=== PATIENT | female | born 1965 | race Two or more races ===

== ENCOUNTER 2021-10-21 14:29 | Emergency (ER) | payer MEDICAID ==
[~2021-10-21] VITALS: Ht 162.6 cm; Wt 61.0 kg
[2021-10-21] MEDS: dextrose 50%-water 50ml dispensing syringe IV ONE (14:45)
[2021-10-21 14:53] LABS: BASOPHILS # (AUTO) 0.1 X10'3 (0-0.2); BASOPHILS % (AUTO) 1.1 % (0-1); EOSINOPHILS # (AUTO) 0.1 X10'3 (0-0.9); EOSINOPHILS % (AUTO) 1.5 % (0-6); HEMATOCRIT 33.8 % (35.0-45.0); HEMOGLOBIN 11.4 g/dl (12.0-16.0); LYMPHOCYTES # (AUTO) 1.9 X10'3 (1.1-4.8); LYMPHOCYTES % (AUTO) 28.1 % (21-51); MEAN CORPUSCULAR HGB CONC 33.8 g/dL (33.0-36.5); MEAN CORPUSCULAR VOLUME 94.7 FL (78-98); MEAN PLATELET VOLUME 7.4 FL (7.4-10.4); MONOCYTES # (AUTO) 0.7 X10'3 (0-0.9); MONOCYTES % (AUTO) 10.5 % (2-12); NEUTROPHILS # (AUTO) 3.9 X10'3 (1.8-7.7); NEUTROPHILS % (AUTO) 58.8 % (42-75); PLATELET COUNT 357 X10'3 (140-440); RED BLOOD COUNT 3.57 X10'6 (4.20-5.60); RED CELL DISTRIBUTION WIDTH 13.1 % (11.5-14.5); WHITE BLOOD COUNT 6.6 X10'3 (4.5-11.0)
[2021-10-21 15:09] LABS: ALANINE AMINOTRANSFERASE 75 U/L (12-78); ALBUMIN 3.3 G/DL (3.4-5.0); ALBUMIN/GLOBULIN RATIO 0.8 (1.1-1.5); ALKALINE PHOSPHATASE 258 IU/L (46-116); ANION GAP 5 (8-16); ASPARTATE AMINO TRANSFERASE 51 U/L (10-37); BILIRUBIN,TOTAL 0.2 MG/DL (0.1-1.0); BLOOD UREA NITROGEN 26 MG/DL (7-18); CALCIUM 9.7 MG/DL (8.5-10.1); CHLORIDE 100 MMOL/L (99-107); CREATININE 0.84 MG/DL (0.40-0.90); GLUCOSE 67 MG/DL (70-104); POTASSIUM 3.4 MMOL/L (3.5-5.1); SODIUM 136 MMOL/L (135-145); TOTAL CARBON DIOXIDE 30.9 MMOL/L (24-32); TOTAL PROTEIN 7.6 G/DL (6.4-8.2); eGFR 71 ML/MIN
[2021-10-21 15:19] LABS: MAGNESIUM 2.1 MG/DL (1.5-2.4)
[2021-10-21 15:25] LABS: CLARITY,URINE SLIGHTLY CLOUDY (Clear); COLOR,URINE YELLOW (Yellow); GLUCOSE, URINE 250 mg/dl (Neg); KETONES,URINE NEGATIVE (Neg); LEUKOCYTE ESTERASE ,URINE NEGATIVE (Neg); NITRITES, URINE NEGATIVE (Neg); OCCULT BLOOD,URINE NEGATIVE (Neg); PROTEIN,URINE 30 mg/dl (Neg); UROBILINOGEN,URINE 0.2 E.U/dL (0.2-1.0)
--- NOTE | 2021-10-21 15:30 | NUR ---
Given a turkey sandwich,118ml apple juice and 236ml of whole milk.
--- NOTE | 2021-10-21 15:38 | NUR ---
temporal temp 96.7, placed pt on a bear hugger.
[2021-10-21 15:49] LABS: UA COLLECTION TYPE CLN CATCH MIDSTREAM
[2021-10-21 15:50] LABS: SQUAMOUS EPITHELIAL CELL,UR MANY /LPF (FEW)
[2021-10-21 15:51] LABS: MUCUS STRANDS FEW /LPF (Neg)
[2021-10-21 15:53] LABS: RBC,URINE 0-2 /HPF (0-2)
[2021-10-21 15:54] LABS: TRANSITIONAL EPI CELLS,URINE FEW /HPF
[2021-10-21 16:00] LABS: BACTERIA,URINE 1+ /HPF (Neg)
[2021-10-21 16:01] LABS: WBC,URINE 0-4 /HPF (0-4)
[2021-10-21 16:36] VITALS: BP 129/81
== END 2021-10-21 17:53 | disposition home or self-care (01) ==
LOC: ER 14:30
DX: R55 Syncope and collapse (principal); E11.649 Type 2 diabetes mellitus with hypoglycemia without coma; E03.9 Hypothyroidism, unspecified
CPT/HCPCS: 36415; 71045; 80053; 81001; 82948; 83735; 83880; 84439; 84443; 84484; 85025; 93005; 96374; 99285; J3490; 96365

== ENCOUNTER 2022-09-09 08:10 | Inpatient (IN) | payer MEDICAID ==
[~2022-09-09] VITALS: Ht 154.9 cm; Wt 68.0 kg
[2022-09-09] MEDS ORDERED: ondansetron/PF 4mg/2ml inj IV ONE (08:40)
[2022-09-09] MEDS ORDERED: normal saline 1000ML IV soln IV ONE (08:40)
[2022-09-09 09:07] LABS: BASOPHILS # (AUTO) 0.1 X10'3 (0-0.2); BASOPHILS % (AUTO) 0.3 % (0-1); EOSINOPHILS % (AUTO) 0.1 % (0-6); HEMATOCRIT 39.5 % (35.0-45.0); HEMOGLOBIN 13.3 g/dl (12.0-16.0); LYMPHOCYTES # (AUTO) 2.3 X10'3 (1.1-4.8); LYMPHOCYTES % (AUTO) 12.8 % (21-51); MEAN CORPUSCULAR HEMOGLOBIN 31.3 PG (27.0-31.0); MEAN CORPUSCULAR HGB CONC 33.7 g/dL (33.0-36.5); MEAN CORPUSCULAR VOLUME 92.6 FL (78-98); MEAN PLATELET VOLUME 8.1 FL (7.4-10.4); MONOCYTES # (AUTO) 1.4 X10'3 (0-0.9); MONOCYTES % (AUTO) 7.7 % (2-12); NEUTROPHILS # (AUTO) 14.5 X10'3 (1.8-7.7); NEUTROPHILS % (AUTO) 79.1 % (42-75); PLATELET COUNT 327 X10'3 (140-440); RED BLOOD COUNT 4.27 X10'6 (4.20-5.60); RED CELL DISTRIBUTION WIDTH 12.5 % (11.5-14.5); WHITE BLOOD COUNT 18.3 X10'3 (4.5-11.0)
[2022-09-09 09:08] LABS: ABG BASE EXCESS -10.1 mmol/L (-2.0-2.0); ABG HCO3 14.3 mmol/L (22.0-26.0); ABG OXYGEN SATURATION 96.8 % (94-97); ABG PCO2 (T) 27.9 mmHg (32.0-45.0); ABG PO2 (T) 93.5 mmHg (75.0-100.0); ALLEN'S TEST POSITIVE; FCOHb 0.7 % (0.0-3.9); FMetHb 0.3 % (0.0-1.5); FO2Hb 95.8 % (94-97); PATIENT TEMPERATURE 37.1; TOTAL HEMOGLOBIN 14.1 G/dl (12.0-16.0)
[2022-09-09 09:21] LABS: ANION GAP 17 (8-16); BILIRUBIN,TOTAL 0.5 MG/DL (0.1-1.0); BLOOD UREA NITROGEN 47 MG/DL (7-18); BUN/CREATININE RATIO 22.7 (6.6-38.0); CHLORIDE 99 MMOL/L (99-107); CREATININE 2.07 MG/DL (0.40-0.90); GLUCOSE 135 MG/DL (70-104); MAGNESIUM 2.2 MG/DL (1.5-2.4); POTASSIUM 4.4 MMOL/L (3.5-5.1); SODIUM 135 MMOL/L (135-145); TOTAL CARBON DIOXIDE 19.3 MMOL/L (24-32); TOTAL PROTEIN 7.5 G/DL (6.4-8.2); eGFR 25 ML/MIN
[2022-09-09 09:22] LABS: ALANINE AMINOTRANSFERASE 45 U/L (12-78); ALBUMIN 3.4 G/DL (3.4-5.0); ALBUMIN/GLOBULIN RATIO 0.8 (1.1-1.5); ALKALINE PHOSPHATASE 200 IU/L (46-116); ASPARTATE AMINO TRANSFERASE 23 U/L (10-37)
[2022-09-09] MEDS ORDERED: CefTRIAXone 2gm/D5W 50ml BAG 50 ML IV ONE (10:20)
[2022-09-09 10:45] LABS: CLARITY,URINE CLEAR (Clear); COLOR,URINE YELLOW (Yellow); GLUCOSE, URINE >=1000 mg/dl (Neg); KETONES,URINE >=80 mg/dl (Neg); LEUKOCYTE ESTERASE ,URINE NEGATIVE (Neg); NITRITES, URINE NEGATIVE (Neg); OCCULT BLOOD,URINE TRACE-INTACT (Neg); PH,URINE 5.5 (4.8-8.0); PROTEIN,URINE 30 mg/dl (Neg); UROBILINOGEN,URINE 0.2 E.U/dL (0.2-1.0)
[2022-09-09 10:47] LABS: UA COLLECTION TYPE STRAIGHT CATH
[2022-09-09 10:53] LABS: BACTERIA,URINE NONE SEEN /HPF (Neg); MUCUS STRANDS NONE SEEN /LPF (Neg); RBC,URINE NONE SEEN /HPF (0-2); SQUAMOUS EPITHELIAL CELL,UR FEW /LPF (FEW); WBC,URINE 0-4 /HPF (0-4)
[2022-09-09] MEDS ORDERED: ondansetron/PF 4mg/2ml inj IV PRN (10:55)
[2022-09-09] MEDS ORDERED: dextrose 50%-water 50ml dispensing syringe IV PRN ×2 (10:55)
[2022-09-09] MEDS ORDERED: glucagon, human recombinant 1mg kit SUBCUT PRN (10:55)
[2022-09-09] MEDS ORDERED: DEXTROSE 15 GM of carb/4 tabs (each vial/BOTTLE has 4 tablets) PO PRN ×2 (10:55)
[2022-09-09] MEDS ORDERED: acetaminophen 325mg tablet PO PRN (10:55)
[2022-09-09] MEDS ORDERED: potassium Cl 40MEQ/1/2NS 520ml 520 ML IV PRN (10:55)
[2022-09-09] MEDS ORDERED: magnesium hydroxide 30ml (MOM) UD suspension PO PRN (10:55)
[2022-09-09] MEDS ORDERED: MESSAGE TO PHARMACY PO ONE (10:55)
[2022-09-09] MEDS ORDERED: magnesium 4gm in 100ml NS 100 ML IV PRN (10:55)
[2022-09-09] MEDS ORDERED: magnesium Cl slow-release 64mg tablet PO PRN (10:55)
[2022-09-09] MEDS ORDERED: potassium Cl 20 mEq SR tablet PO PRN ×2 (10:55)
[2022-09-09 11:33] LABS: HEMOGLOBIN A1C 10.4 % (4.5-6.2)
[2022-09-09] MEDS ORDERED: INSU100V9 SQ (13:44)
[2022-09-09] MEDS: insulin Lispro (HumaLOG) vial - multi-dose SQ SCH (17:48)
--- NOTE | 2022-09-09 18:00 | NUR ---
PT WOKE UP SCREAMING "HELP ME, HURRY". UPON ENTERING ROOM PT WANTED TO USE BEDSIDE COMODE AND HAD PULLED OUT HER IV, AND REMOVED ALL MONITORING DEVICES. SHE STATES SHE WANTS TO GO HOME, THEREFORE SHE WAS QUESTIONED TO DETERMINE IF SHE WAS A&OX4, AND SHE WAS NOT. DISORIENTED TO DATE/TIME, AND SITUATION. PT WAS TODL SHE MAY NOT MAKE THE DESICION TO LEAVE AMA AT THIS TIME.
--- NOTE | 2022-09-09 18:58 | NUR ---
SPOKE TO MD AT THIS TIME REGARDING DIET ORDER FOR PT, PER MD PT IS TO REMAIN NPO FOR NOW.
[2022-09-09 19:02] LABS: URINE AMPHETAMINE SCREEN POSITIVE (Neg); URINE BARBITUATE SCREEN NEGATIVE (Neg); URINE BENZODIAZEPINES SCREEN NEGATIVE (Neg); URINE CANNABINOID SCREEN NEGATIVE (Neg); URINE COCAINE SCREEN NEGATIVE (Neg); URINE METHADONE SCREEN NEGATIVE (Neg); URINE OPIATE SCREEN NEGATIVE (Neg); URINE PHENCYCLIDINE SCREEN NEGATIVE (Neg)
[2022-09-09] MEDS: K and/or MAG REPLACEMENT MC SCH (19:52)
[2022-09-09] MEDS: docusate sod 100mg capsule PO SCH (19:53)
[2022-09-09] MEDS: heparin, porcine 5000 units/ml vial SQ SCH (20:47)
[2022-09-09] MEDS: insulin glargine (Lantus) pen - multi-dose SQ SCH (21:05)
--- NOTE | 2022-09-09 22:30 | NUR ---
PT IS YELLING AND CUSSING AT STAFF AT THIS TIME, YELLING "SHUT THE FUCK UP, ITS 1030 AT NIGHT!"
[2022-09-10] MEDS ORDERED: VANCOMYCIN 750MG IV in NS 250 ML IV ONE (03:10)
[2022-09-10] MEDS ORDERED: vancomycin inj 500 MG in normal saline 100ml IV soln 100 ML IV SCH (04:00)
[2022-09-10 05:40] LABS: BASOPHILS # (AUTO) 0.1 X10'3 (0-0.2); BASOPHILS % (AUTO) 0.5 % (0-1); EOSINOPHILS # (AUTO) 0.1 X10'3 (0-0.9); EOSINOPHILS % (AUTO) 0.6 % (0-6); HEMATOCRIT 31.9 % (35.0-45.0); HEMOGLOBIN 10.7 g/dl (12.0-16.0); LYMPHOCYTES # (AUTO) 1.8 X10'3 (1.1-4.8); MEAN CORPUSCULAR HEMOGLOBIN 31.4 PG (27.0-31.0); MEAN CORPUSCULAR HGB CONC 33.6 g/dL (33.0-36.5); MEAN CORPUSCULAR VOLUME 93.4 FL (78-98); MEAN PLATELET VOLUME 7.9 FL (7.4-10.4); MONOCYTES % (AUTO) 7.9 % (2-12); NEUTROPHILS # (AUTO) 9.8 X10'3 (1.8-7.7); PLATELET COUNT 184 X10'3 (140-440); RED BLOOD COUNT 3.41 X10'6 (4.20-5.60); RED CELL DISTRIBUTION WIDTH 12.8 % (11.5-14.5); WHITE BLOOD COUNT 12.7 X10'3 (4.5-11.0)
[2022-09-10 06:03] LABS: ALANINE AMINOTRANSFERASE 32 U/L (12-78); ALBUMIN 2.6 G/DL (3.4-5.0); ALBUMIN/GLOBULIN RATIO 0.8 (1.1-1.5); ALKALINE PHOSPHATASE 160 IU/L (46-116); ANION GAP 13 (8-16); ASPARTATE AMINO TRANSFERASE 20 U/L (10-37); BILIRUBIN,TOTAL 0.4 MG/DL (0.1-1.0); BLOOD UREA NITROGEN 24 MG/DL (7-18); BUN/CREATININE RATIO 15.5 (6.6-38.0); CALCIUM 7.8 MG/DL (8.5-10.1); CHLORIDE 105 MMOL/L (99-107); CREATININE 1.55 MG/DL (0.40-0.90); GLUCOSE 292 MG/DL (70-104); LIPASE 300 U/L (73-393); MAGNESIUM 2.1 MG/DL (1.5-2.4); SODIUM 139 MMOL/L (135-145); TOTAL PROTEIN 5.9 G/DL (6.4-8.2); eGFR 35 ML/MIN
[2022-09-10] MEDS: K and/or MAG REPLACEMENT MC SCH ×2 (08:00→19:36)
[2022-09-10] MEDS: heparin, porcine 5000 units/ml vial SQ SCH ×2 (08:20→19:46)
[2022-09-10] MEDS: docusate sod 100mg capsule PO SCH ×2 (08:20→19:45)
[2022-09-10] MEDS: insulin Lispro (HumaLOG) vial - multi-dose SQ SCH ×3 (10:35→21:36)
[2022-09-10] MEDS: mag hydrox/Alum hydrox/simeth 30ml oral suspension PO PRN (19:45)
--- NOTE | 2022-09-10 19:56 | NUR ---
Pt stated no BM since she came to which was 09/08 and has not had diarrhea, Colace given as ordered however order for C-diff sample. Addendum: 09/10/22 at 2000 by Destiny Reveles RN Amended: Links added.
[2022-09-10 20:00] VITALS: BP 145/86
[2022-09-10] MEDS: insulin glargine (Lantus) pen - multi-dose SQ SCH (21:35)
[2022-09-10 22:00] VITALS: BP 157/86
[2022-09-11] MEDS: VANCOMYCIN 750MG IV in NS 250 ML IV SCH (03:21)
--- NOTE | 2022-09-11 06:17 | NUR ---
Problems reprioritized. Patient report given, questions answered & plan of care reviewed with Sharon TIRADO. Addendum: 09/11/22 at 0618 by Destiny Reveles RN Amended: Links added.
[2022-09-11 06:33] LABS: MAGNESIUM 2.2 MG/DL (1.5-2.4); POTASSIUM 3.4 MMOL/L (3.5-5.1)
[2022-09-11 07:10] VITALS: BP 120/66
[2022-09-11] MEDS: docusate sod 100mg capsule PO SCH ×2 (07:33→20:15)
[2022-09-11] MEDS: mag hydrox/Alum hydrox/simeth 30ml oral suspension PO PRN ×3 (07:33→20:15)
[2022-09-11] MEDS: heparin, porcine 5000 units/ml vial SQ SCH ×2 (07:34→20:15)
[2022-09-11] MEDS: K and/or MAG REPLACEMENT MC SCH ×2 (07:34→20:00)
[2022-09-11] MEDS: insulin Lispro (HumaLOG) vial - multi-dose SQ SCH ×3 (09:30→20:38)
[2022-09-11 10:00] VITALS: BP 136/77
--- NOTE | 2022-09-11 16:19 | NUR ---
DM Consult: Pt admit DX hyperglycemia and meth abuse hx T1DM A1C 10.4% w/ Glu 208mg/dl this AM down from 327mg/dl on admit per EMR. Pt seen by RD at bedside; pt declines verbal DM diet ed agreeable to written ed w/ RD contact information left at bedside. Pt does report checks Glu at home typically 250-300mg/dl and has PCP to manage DM though not agreeable to further conversation. RD encouraged pt to contact dietitian's office if further questions/concerns. Addendum: 09/11/22 at [address] Amended: Links added.
[2022-09-11 18:00] VITALS: BP 137/89
--- NOTE | 2022-09-11 18:20 | NUR ---
Problems reprioritized. Patient report given, questions answered & plan of care reviewed with CANDIDA Dixon.
[2022-09-11] MEDS: insulin glargine (Lantus) pen - multi-dose SQ SCH (20:37)
[2022-09-11 22:00] VITALS: BP 143/87
[2022-09-12] MEDS: VANCOMYCIN 750MG IV in NS 250 ML IV SCH (03:35)
--- NOTE | 2022-09-12 06:11 | NUR ---
Problems reprioritized. Patient report given, questions answered & plan of care reviewed with Sharon TIRADO. Addendum: 09/12/22 at 0612 by Destiny Reveles RN Amended: Links added.
[2022-09-12 07:00] VITALS: BP 156/88
[2022-09-12] MEDS: docusate sod 100mg capsule PO SCH (07:12)
[2022-09-12] MEDS: heparin, porcine 5000 units/ml vial SQ SCH (07:20)
--- NOTE | 2022-09-12 07:22 | NUR ---
Student Medication Administration: For this medication-pass time frame, all medication were reviewed, dispensed, administered and documented per hospital policy by student nurse Es rod with RN instructor Almaz Harvey.
[2022-09-12 07:36] LABS: MAGNESIUM 2.3 MG/DL (1.5-2.4); POTASSIUM 4.3 MMOL/L (3.5-5.1)
[2022-09-12] MEDS: K and/or MAG REPLACEMENT MC SCH (08:00)
[2022-09-12] MEDS: insulin Lispro (HumaLOG) vial - multi-dose SQ SCH (10:16)
--- NOTE | 2022-09-12 10:23 | NUR ---
Student Medication Administration: For this medication-pass time frame, all medication were reviewed, dispensed, administered and documented per hospital policy by student nurse Es Ly with RN instructor Almaz Harvey.
[2022-09-12] MEDS: mag hydrox/Alum hydrox/simeth 30ml oral suspension PO PRN (10:29)
[2022-09-12] MEDS ORDERED: LISI2.5T14 PO (10:56)
[2022-09-12] MEDS ORDERED: CLIN-97 PO (10:56)
[2022-09-12] MEDS ORDERED: ATOR20TA PO (10:56)
[2022-09-12 11:00] VITALS: BP 151/92
--- NOTE | 2022-09-12 13:38 | NUR ---
Patient stable and appropriate for discharge home with family. IV x2 removed. All belongings taken from room. New RX e-scripted to Aide Boudreaux. All discharge instructions and education given and reviewed with patient, all questions answered.
--- NOTE | 2022-09-12 19:54 | NUR ---
Student documentation: I have reviewed and agree with all interventions, assessments performed and documented by Es Ly student nurse, by Almaz Harvey RN instructor.
[2022-09-13] MEDS ORDERED: VANCOMYCIN LEVEL IV ONE (02:30)
== END 2022-09-12 13:30 | disposition home or self-care (01) | DRG 422 ==
LOC: ER 08:10 → ED HOLD 10:56 → SUR 3N 09-10 19:31
PROVIDERS: ADMIT Internal Medicine; ATTEND Internal Medicine
DX: E86.0 Dehydration (principal); R78.81 Bacteremia; M84.48XA Pathological fracture, other site, initial encounter for fracture; E10.65 Type 1 diabetes mellitus with hyperglycemia; D72.829 Elevated white blood cell count, unspecified; B95.7 Other staphylococcus as the cause of diseases classified elsewhere; E03.9 Hypothyroidism, unspecified; Z20.822 Contact with and (suspected) exposure to COVID-19; R19.7 Diarrhea, unspecified; F15.10 Other stimulant abuse, uncomplicated; Z79.4 Long term (current) use of insulin
CPT/HCPCS: 36415; 36600; 71045; 74176; 80053; 80305; 81001; 82803; 82948; 83036; 83605; 83690; 83735; 84132; 84145; 85018; 85025; 87040; 87077; 87081; 87186; 87635; 93005; 99285; G0378; J0696; J1644; J1815; J2405; J3370; J7030; J7050

== ENCOUNTER 2023-04-03 15:36 | Inpatient (IN) | payer MEDICAID ==
[~2023-04-03] VITALS: Ht 165.1 cm; Wt 70.2 kg
[~2023-04-03 15:36] MED LIST: ATOR20TA PO; CLIN-97 PO; INSU100V9 SQ; LISI2.5T14 PO
[2023-04-03] MEDS ORDERED: bacitracin 15gm ointment TP ONE (16:50)
[2023-04-03] MEDS ORDERED: vancomycin/NS 1 GM ADD-VANTAGE 250 ML IV ONE (18:05)
[2023-04-03] MEDS ORDERED: piperacillin/tazo 3.375gm/50ml 50 ML IV ONE (18:05)
[2023-04-03 18:13] LABS: BASOPHILS # (AUTO) 0.1 X10'3 (0-0.2); BASOPHILS % (AUTO) 0.9 % (0-1); EOSINOPHILS # (AUTO) 0.2 X10'3 (0-0.9); EOSINOPHILS % (AUTO) 2.8 % (0-6); HEMATOCRIT 35.6 % (35.0-45.0); LYMPHOCYTES # (AUTO) 2.3 X10'3 (1.1-4.8); LYMPHOCYTES % (AUTO) 29.7 % (21-51); MEAN CORPUSCULAR HEMOGLOBIN 30.5 PG (27.0-31.0); MEAN CORPUSCULAR HGB CONC 33.7 g/dL (33.0-36.5); MEAN CORPUSCULAR VOLUME 90.4 FL (78-98); MEAN PLATELET VOLUME 7.6 FL (7.4-10.4); MONOCYTES # (AUTO) 0.8 X10'3 (0-0.9); NEUTROPHILS # (AUTO) 4.3 X10'3 (1.8-7.7); NEUTROPHILS % (AUTO) 56.6 % (42-75); PLATELET COUNT 320 X10'3 (140-440); RED BLOOD COUNT 3.93 X10'6 (4.20-5.60); RED CELL DISTRIBUTION WIDTH 12.8 % (11.5-14.5); WHITE BLOOD COUNT 7.7 X10'3 (4.5-11.0)
[2023-04-03 18:32] LABS: ALANINE AMINOTRANSFERASE 32 U/L (12-78); ALBUMIN 2.9 G/DL (3.4-5.0); ALBUMIN/GLOBULIN RATIO 0.7 (1.1-1.5); ALKALINE PHOSPHATASE 199 IU/L (46-116); ANION GAP 7 (8-16); ASPARTATE AMINO TRANSFERASE 22 U/L (10-37); BILIRUBIN,TOTAL 0.1 MG/DL (0.1-1.0); BLOOD UREA NITROGEN 23 MG/DL (7-18); BUN/CREATININE RATIO 21.3 (10.0-20.0); C-REACTIVE PROTEIN 3.16 MG/DL (0.0-0.5); CALCIUM 9.2 MG/DL (8.5-10.1); CHLORIDE 104 MMOL/L (99-107); CREATININE 1.08 MG/DL (0.40-0.90); GLUCOSE 233 MG/DL (70-104); SODIUM 141 MMOL/L (135-145); TOTAL CARBON DIOXIDE 29.9 MMOL/L (24-32); TOTAL PROTEIN 7.1 G/DL (6.4-8.2); eGFR 52 ML/MIN
[2023-04-03] MEDS ORDERED: normal saline 1000ml 1,000 ML IV ONE (18:50)
[2023-04-03] MEDS ORDERED: magnesium 4gm in 100ml NS 100 ML IV PRN (20:30)
[2023-04-03] MEDS ORDERED: magnesium Cl slow-release 64mg tablet PO PRN (20:30)
[2023-04-03] MEDS ORDERED: DEXTROSE 15 GM of carb/4 tabs (each vial/BOTTLE has 4 tablets) PO PRN ×2 (20:30)
[2023-04-03] MEDS ORDERED: glucagon, human recombinant 1mg kit SUBCUT PRN (20:30)
[2023-04-03] MEDS ORDERED: magnesium 2GM in 50ml NS 50 ML IV PRN (20:30)
[2023-04-03] MEDS ORDERED: HYDROcodone/acetaminophen 10/325mg tab PO PRN (20:30)
[2023-04-03] MEDS ORDERED: morphine 2 MG/ML inj. syringe IV PRN ×2 (20:30)
[2023-04-03] MEDS ORDERED: dextrose 50%-water 50ml dispensing syringe IV PRN ×2 (20:30)
[2023-04-03] MEDS ORDERED: acetaminophen 325mg tablet PO PRN ×2 (20:30)
[2023-04-03] MEDS ORDERED: HYDROcodone/acetaminophen 5mg/325mg tablet PO PRN (20:30)
[2023-04-03] MEDS ORDERED: potassium Cl 40MEQ/1/2NS 520ml 520 ML IV PRN (20:30)
[2023-04-03] MEDS ORDERED: ondansetron/PF 4mg/2ml inj IV PRN (20:30)
[2023-04-03] MEDS ORDERED: MESSAGE TO PHARMACY PO ONE (20:30)
[2023-04-03] MEDS ORDERED: potassium Cl 20 mEq SR tablet PO PRN ×2 (20:30)
[2023-04-03] MEDS ORDERED: temazepam 15mg capsule PO PRN (21:00)
[2023-04-03] MEDS: insulin glargine (Lantus) pen - multi-dose SQ SCH (21:00)
[2023-04-03] MEDS: cefepime 1GM/NS ADD-VANTAGE 100 ML IV SCH (21:57)
[2023-04-03 23:30] VITALS: BP 140/80
[2023-04-03] MEDS: normal saline 1000ml 1,000 ML IV SCH (23:36)
[2023-04-04] MEDS ORDERED: vancomycin/NS 1 GM ADD-VANTAGE 250 ML IV SCH (06:00)
--- NOTE | 2023-04-04 06:13 | NUR ---
Problems reprioritized. Patient report given, questions answered & plan of care reviewed with CANDIDA Bella.
[2023-04-04 06:29] LABS: HEMOGLOBIN A1C 9.4 % (4.5-6.2)
[2023-04-04] MEDS: normal saline 1000ml 1,000 ML IV SCH (06:30)
[2023-04-04 06:32] VITALS: BP 150/80
--- NOTE | 2023-04-04 06:39 | NUR ---
Patient in room ORTHO 4014. I have received report from Chhaya TIRADO and had the opportunity to ask questions and assume patient care.
[2023-04-04 06:47] LABS: ALANINE AMINOTRANSFERASE 25 U/L (12-78); ALBUMIN 2.6 G/DL (3.4-5.0); ALBUMIN/GLOBULIN RATIO 0.6 (1.1-1.5); ALKALINE PHOSPHATASE 174 IU/L (46-116); ANION GAP 8 (8-16); ASPARTATE AMINO TRANSFERASE 21 U/L (10-37); BILIRUBIN,TOTAL 0.3 MG/DL (0.1-1.0); BLOOD UREA NITROGEN 23 MG/DL (7-18); BUN/CREATININE RATIO 23.5 (10.0-20.0); CALCIUM 8.5 MG/DL (8.5-10.1); CHLORIDE 104 MMOL/L (99-107); CREATININE 0.98 MG/DL (0.40-0.90); POTASSIUM 4.4 MMOL/L (3.5-5.1); SODIUM 137 MMOL/L (135-145); TOTAL CARBON DIOXIDE 24.8 MMOL/L (24-32); TOTAL PROTEIN 6.8 G/DL (6.4-8.2); eGFR 59 ML/MIN
[2023-04-04 06:49] LABS: GLUCOSE 453 MG/DL (70-104)
--- NOTE | 2023-04-04 06:57 | NUR ---
PAGER ID: [phone] MESSAGE: Shayne Shah re: [id number] Daniel Siu Patient had a critical glucose of 453 for morning labs will retest with Point of Care. Thanks.
[2023-04-04 07:01] LABS: BASOPHILS # (AUTO) 0.1 X10'3 (0-0.2); EOSINOPHILS # (AUTO) 0.3 X10'3 (0-0.9); HEMATOCRIT 35.6 % (35.0-45.0); HEMOGLOBIN 11.7 g/dl (12.0-16.0); MEAN CORPUSCULAR HEMOGLOBIN 30.2 PG (27.0-31.0); MEAN CORPUSCULAR HGB CONC 32.7 g/dL (33.0-36.5); MEAN CORPUSCULAR VOLUME 92.4 FL (78-98); MEAN PLATELET VOLUME 7.7 FL (7.4-10.4); MONOCYTES # (AUTO) 0.6 X10'3 (0-0.9); MONOCYTES % (AUTO) 6.8 % (2-12); NEUTROPHILS # (AUTO) 5.7 X10'3 (1.8-7.7); NEUTROPHILS % (AUTO) 66.2 % (42-75); PLATELET COUNT 316 X10'3 (140-440); RED BLOOD COUNT 3.86 X10'6 (4.20-5.60); RED CELL DISTRIBUTION WIDTH 13.3 % (11.5-14.5); WHITE BLOOD COUNT 8.7 X10'3 (4.5-11.0)
[2023-04-04] MEDS: nicotine 14mg patch - 24hr TD SCH (08:00)
[2023-04-04] MEDS: insulin Lispro (HumaLOG) vial - multi-dose SQ SCH ×3 (08:31→18:49)
[2023-04-04] MEDS: cefepime 1GM/NS ADD-VANTAGE 100 ML IV SCH (10:25)
[2023-04-04] MEDS ORDERED: GADOTERATE MEGLUMINE 7.5 MMOL/15 ML VIAL IV ONE (11:09)
[2023-04-04] MEDS: CefTRIAXone 2gm/D5W 50ml BAG 50 ML IV SCH (13:20)
--- NOTE | 2023-04-04 13:48 | NUR ---
DM Consult: Pt hx T1DM admit DX R foot wound possible osteomyelitis A1C 9.4% down from 10.4% 09/09/2022 per EMR. Pending [facility] assessment this admit. Pt seen by RD at bedside for written/verbal DM diet ed w/ RD contact information provided. Pt passive to education reports takes Novolin-R TIDWM for Glu coverage, takes meds per Rx, no issues w/ med refills, and denies questions at this time. RD encouraged pt to contact dietitian's office if nutrition questions/concerns. Addendum: 04/04/23 at [address] Amended: Links added.
--- NOTE | 2023-04-04 15:38 | NUR ---
PAGER ID: [phone] MESSAGE: Shayne Shah [phone] re:[id number] Daniel Siu Patient was really wanting to hear the results of her MRI at this time, the anticipation is causing her some anxiety. Thanks
[2023-04-04] MEDS ORDERED: MED LIST UNOBTAINABL (16:00)
--- NOTE | 2023-04-04 16:35 | NUR ---
PAGER ID: [phone] MESSAGE: Shayne Shah [phone] re:[id number] Daniel Siu Patient was really wanting to hear the results of her MRI at this time, the anticipation is causing her some anxiety. Thanks
[2023-04-04] MEDS: metroNIDAZOLE-Flagyl 500mg/NS 100 ML IV SCH (16:45)
[2023-04-04 18:00] VITALS: BP 132/77
[2023-04-04] MEDS: vancomycin/NS 1 GM ADD-VANTAGE 250 ML IV SCH (18:51)
[2023-04-04] MEDS: enoxaparin 40mg/0.4ml syringe SQ SCH (20:33)
[2023-04-04] MEDS: insulin glargine (Lantus) pen - multi-dose SQ SCH (21:11)
[2023-04-04 22:00] VITALS: BP 132/79
[2023-04-05] MEDS: metroNIDAZOLE-Flagyl 500mg/NS 100 ML IV SCH ×3 (00:22→16:05)
[2023-04-05 06:00] VITALS: BP 151/92
--- NOTE | 2023-04-05 06:26 | NUR ---
Problems reprioritized. Patient report given, questions answered & plan of care reviewed with CANDIDA Siddiqui.
[2023-04-05] MEDS ORDERED: VANCOMYCIN LEVEL IV ONE (06:30)
--- NOTE | 2023-04-05 06:32 | NUR ---
Patient in room ORTHO 4020. I have received report from Chhaya Kumar and had the opportunity to ask questions and assume patient care.
[2023-04-05 06:56] LABS: BASOPHILS # (AUTO) 0.1 X10'3 (0-0.2); BASOPHILS % (AUTO) 1.3 % (0-1); EOSINOPHILS # (AUTO) 0.3 X10'3 (0-0.9); EOSINOPHILS % (AUTO) 4.4 % (0-6); HEMATOCRIT 35.6 % (35.0-45.0); HEMOGLOBIN 11.9 g/dl (12.0-16.0); LYMPHOCYTES # (AUTO) 2.3 X10'3 (1.1-4.8); LYMPHOCYTES % (AUTO) 34.6 % (21-51); MEAN CORPUSCULAR HEMOGLOBIN 30.4 PG (27.0-31.0); MEAN CORPUSCULAR HGB CONC 33.5 g/dL (33.0-36.5); MEAN CORPUSCULAR VOLUME 90.6 FL (78-98); MEAN PLATELET VOLUME 7.5 FL (7.4-10.4); MONOCYTES # (AUTO) 0.7 X10'3 (0-0.9); MONOCYTES % (AUTO) 10.3 % (2-12); NEUTROPHILS # (AUTO) 3.3 X10'3 (1.8-7.7); NEUTROPHILS % (AUTO) 49.4 % (42-75); PLATELET COUNT 301 X10'3 (140-440); RED BLOOD COUNT 3.93 X10'6 (4.20-5.60); WHITE BLOOD COUNT 6.7 X10'3 (4.5-11.0)
[2023-04-05 07:03] LABS: ALANINE AMINOTRANSFERASE 28 U/L (12-78); ALBUMIN 2.6 G/DL (3.4-5.0); ALBUMIN/GLOBULIN RATIO 0.7 (1.1-1.5); ALKALINE PHOSPHATASE 176 IU/L (46-116); ANION GAP 4 (8-16); ASPARTATE AMINO TRANSFERASE 23 U/L (10-37); BILIRUBIN,TOTAL 0.2 MG/DL (0.1-1.0); BLOOD UREA NITROGEN 16 MG/DL (7-18); BUN/CREATININE RATIO 19.3 (10.0-20.0); CALCIUM 8.7 MG/DL (8.5-10.1); CHLORIDE 106 MMOL/L (99-107); CREATININE 0.83 MG/DL (0.40-0.90); GLUCOSE 189 MG/DL (70-104); POTASSIUM 3.9 MMOL/L (3.5-5.1); SODIUM 138 MMOL/L (135-145); TOTAL CARBON DIOXIDE 28.4 MMOL/L (24-32); TOTAL PROTEIN 6.6 G/DL (6.4-8.2); VANCOMYCIN,TROUGH 14.1 UG/ML (6.0-14.0); eGFR 71 ML/MIN
[2023-04-05] MEDS: vancomycin/NS 1 GM ADD-VANTAGE 250 ML IV SCH (07:39)
[2023-04-05] MEDS: nicotine 14mg patch - 24hr TD SCH (07:41)
[2023-04-05] MEDS: VANCOmycin 1250MG/NS 250ml Bag 250 ML IV SCH ×2 (08:00→20:50)
[2023-04-05] MEDS: insulin Lispro (HumaLOG) vial - multi-dose SQ SCH ×2 (09:24→19:24)
[2023-04-05 10:00] VITALS: BP 156/85
[2023-04-05] MEDS: CefTRIAXone 2gm/D5W 50ml BAG 50 ML IV SCH (10:23)
--- NOTE | 2023-04-05 13:37 | NUR ---
DIABETIC FOOT CARE EDUCATION PROVIDED BY WOUND CARE * Wash your feet daily with lukewarm water and soap. * Dry your feet well, especially between the toes. * Keep the skin moisturized with lotion, but do not apply it between the toes. * Check your feet for blisters, cuts or sores. * Use an emery board to shape your toenails even with the ends of your toes. * Change daily into clean, soft socks or stockings, not too big or too small. * Keep your feet warm and dry. * Preferably wear special padded socks and shoes that fit well. * Never walk barefoot indoors or outdoors. * Examine your shoes everyday for cracks, aryan, nails or anything that could hurt your feet. * Tell your doctor if you find any of these problems or have any concerns after examining your feet. Addendum: 04/05/23 at 1337 by Lesley Medrano RN Amended: Links added.
[2023-04-05 18:00] VITALS: BP 134/67
--- NOTE | 2023-04-05 18:23 | NUR ---
Problems reprioritized. Patient report given, questions answered & plan of care reviewed with Tamara.
--- NOTE | 2023-04-05 18:25 | NUR ---
Patient in room ORTHO 4020. I have received report from FELISHA TIRADO and had the opportunity to ask questions and assume patient care.
[2023-04-05] MEDS: enoxaparin 40mg/0.4ml syringe SQ SCH (20:50)
[2023-04-05 22:00] VITALS: BP 134/84
[2023-04-05] MEDS: insulin glargine (Lantus) pen - multi-dose SQ SCH (22:08)
[2023-04-06] MEDS: metroNIDAZOLE-Flagyl 500mg/NS 100 ML IV SCH ×3 (00:35→15:58)
[2023-04-06 06:00] VITALS: BP 146/90
[2023-04-06 06:14] LABS: BASOPHILS # (AUTO) 0.1 X10'3 (0-0.2); BASOPHILS % (AUTO) 1.4 % (0-1); EOSINOPHILS # (AUTO) 0.3 X10'3 (0-0.9); EOSINOPHILS % (AUTO) 3.8 % (0-6); HEMATOCRIT 34.5 % (35.0-45.0); HEMOGLOBIN 11.6 g/dl (12.0-16.0); LYMPHOCYTES # (AUTO) 2.6 X10'3 (1.1-4.8); MEAN CORPUSCULAR HEMOGLOBIN 30.6 PG (27.0-31.0); MEAN CORPUSCULAR HGB CONC 33.7 g/dL (33.0-36.5); MEAN CORPUSCULAR VOLUME 90.7 FL (78-98); MEAN PLATELET VOLUME 7.7 FL (7.4-10.4); MONOCYTES # (AUTO) 0.9 X10'3 (0-0.9); MONOCYTES % (AUTO) 13.1 % (2-12); NEUTROPHILS # (AUTO) 2.9 X10'3 (1.8-7.7); NEUTROPHILS % (AUTO) 43.7 % (42-75); PLATELET COUNT 298 X10'3 (140-440); RED CELL DISTRIBUTION WIDTH 12.8 % (11.5-14.5); WHITE BLOOD COUNT 6.7 X10'3 (4.5-11.0)
[2023-04-06 06:21] LABS: ALANINE AMINOTRANSFERASE 22 U/L (12-78); ALBUMIN 2.7 G/DL (3.4-5.0); ALBUMIN/GLOBULIN RATIO 0.7 (1.1-1.5); ALKALINE PHOSPHATASE 167 IU/L (46-116); ANION GAP 8 (8-16); ASPARTATE AMINO TRANSFERASE 19 U/L (10-37); BILIRUBIN,TOTAL 0.2 MG/DL (0.1-1.0); BLOOD UREA NITROGEN 15 MG/DL (7-18); BUN/CREATININE RATIO 16.5 (10.0-20.0); CALCIUM 8.7 MG/DL (8.5-10.1); CHLORIDE 105 MMOL/L (99-107); CREATININE 0.91 MG/DL (0.40-0.90); GLUCOSE 120 MG/DL (70-104); POTASSIUM 3.6 MMOL/L (3.5-5.1); SODIUM 141 MMOL/L (135-145); TOTAL CARBON DIOXIDE 27.7 MMOL/L (24-32); TOTAL PROTEIN 6.6 G/DL (6.4-8.2); eGFR 64 ML/MIN
--- NOTE | 2023-04-06 06:29 | NUR ---
Problems reprioritized. Patient report given, questions answered & plan of care reviewed with ERIN FRANCO.
[2023-04-06] MEDS: CefTRIAXone 2gm/D5W 50ml BAG 50 ML IV SCH (07:18)
[2023-04-06] MEDS: nicotine 14mg patch - 24hr TD SCH (08:00)
[2023-04-06] MEDS: VANCOmycin 1250MG/NS 250ml Bag 250 ML IV SCH ×2 (08:15→21:24)
[2023-04-06] MEDS: insulin Lispro (HumaLOG) vial - multi-dose SQ SCH ×3 (09:04→19:21)
[2023-04-06 10:00] VITALS: BP 122/68
--- NOTE | 2023-04-06 13:06 | NUR ---
WOUND INFECTION EDUCATION PROVIDED BY WOUND CARE 1. Patient instructed to call their primary doctor, or go the ED immediately if any of the following symptoms occur: * Increased pain in wound * Increase in drainage from the wound * Redness in the skin surrounding the wound * Warmth in the skin surrounding the wound * Bleeding from the wound * Temperature of 101 or greater 2. If any of these occur while in the hospital tell a nurse immediately. Addendum: 04/06/23 at 1306 by Lesley Medrano RN Amended: Links added.
--- NOTE | 2023-04-06 17:00 | NUR ---
I have reviewed & agree w/ interventions, assessments, and documentation by Yamila Turner LVN.
[2023-04-06 18:00] VITALS: BP 127/70
--- NOTE | 2023-04-06 18:35 | NUR ---
Patient in room ORTHO 4020. I have received report from ERIN FRANCO and had the opportunity to ask questions and assume patient care.
[2023-04-06] MEDS ORDERED: VANCOMYCIN LEVEL IV ONE (19:30)
[2023-04-06] MEDS: enoxaparin 40mg/0.4ml syringe SQ SCH (21:31)
[2023-04-06] MEDS: insulin glargine (Lantus) pen - multi-dose SQ SCH (21:40)
[2023-04-06 22:00] VITALS: BP 141/90
[2023-04-07] MEDS: metroNIDAZOLE-Flagyl 500mg/NS 100 ML IV SCH ×2 (00:40→07:32)
[2023-04-07 06:26] LABS: ALANINE AMINOTRANSFERASE 16 U/L (12-78); ALBUMIN 2.5 G/DL (3.4-5.0); ALBUMIN/GLOBULIN RATIO 0.6 (1.1-1.5); ALKALINE PHOSPHATASE 156 IU/L (46-116); ANION GAP 7 (8-16); ASPARTATE AMINO TRANSFERASE 31 U/L (10-37); BILIRUBIN,TOTAL 0.3 MG/DL (0.1-1.0); BLOOD UREA NITROGEN 16 MG/DL (7-18); BUN/CREATININE RATIO 15.5 (10.0-20.0); CALCIUM 8.9 MG/DL (8.5-10.1); CHLORIDE 103 MMOL/L (99-107); CREATININE 1.03 MG/DL (0.40-0.90); GLUCOSE 422 MG/DL (70-104); POTASSIUM 4.4 MMOL/L (3.5-5.1); SODIUM 136 MMOL/L (135-145); TOTAL CARBON DIOXIDE 26.5 MMOL/L (24-32); TOTAL PROTEIN 6.5 G/DL (6.4-8.2); eGFR 55 ML/MIN
[2023-04-07 06:31] LABS: BASOPHILS # (AUTO) 0.1 X10'3 (0-0.2); BASOPHILS % (AUTO) 1.3 % (0-1); EOSINOPHILS # (AUTO) 0.2 X10'3 (0-0.9); EOSINOPHILS % (AUTO) 3.2 % (0-6); HEMATOCRIT 34.9 % (35.0-45.0); HEMOGLOBIN 11.7 g/dl (12.0-16.0); LYMPHOCYTES # (AUTO) 2.2 X10'3 (1.1-4.8); LYMPHOCYTES % (AUTO) 33.4 % (21-51); MEAN CORPUSCULAR HEMOGLOBIN 30.4 PG (27.0-31.0); MEAN CORPUSCULAR HGB CONC 33.5 g/dL (33.0-36.5); MEAN CORPUSCULAR VOLUME 90.5 FL (78-98); MEAN PLATELET VOLUME 8.2 FL (7.4-10.4); MONOCYTES # (AUTO) 0.8 X10'3 (0-0.9); MONOCYTES % (AUTO) 11.5 % (2-12); NEUTROPHILS # (AUTO) 3.3 X10'3 (1.8-7.7); NEUTROPHILS % (AUTO) 50.6 % (42-75); PLATELET COUNT 279 X10'3 (140-440); RED BLOOD COUNT 3.86 X10'6 (4.20-5.60); RED CELL DISTRIBUTION WIDTH 13.1 % (11.5-14.5); WHITE BLOOD COUNT 6.6 X10'3 (4.5-11.0)
--- NOTE | 2023-04-07 06:40 | NUR ---
Problems reprioritized. Patient report given, questions answered & plan of care reviewed with JOSE TIRADO.
--- NOTE | 2023-04-07 06:52 | NUR ---
Patient in room ORTHO 4020. I have received report from carlos gonzalez rn and had the opportunity to ask questions and assume patient care.
[2023-04-07] MEDS: nicotine 14mg patch - 24hr TD SCH (08:00)
[2023-04-07] MEDS: CefTRIAXone 2gm/D5W 50ml BAG 50 ML IV SCH (08:40)
[2023-04-07] MEDS: insulin Lispro (HumaLOG) vial - multi-dose SQ SCH (08:56)
[2023-04-07] MEDS: VANCOmycin 1250MG/NS 250ml Bag 250 ML IV SCH (09:50)
[2023-04-07] MEDS ORDERED: AMOX-580 PO (10:40)
[2023-04-07] MEDS ORDERED: DOXY-356 PO (10:40)
[2023-04-07] MEDS ORDERED: LANTUS SQ (10:40)
--- NOTE | 2023-04-07 12:05 | NUR ---
F/u 04/07: Pt R foot wound no staging per WOC note and pending either discharge or OR per MD/PA notes. Pt seen by DEMETRIO today for verbal high protein ed; pt reports being discharged today. Pt w/ discharge orders in EMR. DEMETRIO reviewed ONS recs depending on PO trends for wound healing and encouraged pt to contact dietitian's office if nutrition questions/concerns. Addendum: 04/07/23 at [address] Amended: Links added.
--- NOTE | 2023-04-07 13:27 | NUR ---
PT DISCHARGED IN STABLE CONDITION. LEFT FACILITY IN PRIVATE VEHICLE. IV DC CANULA INTACT. FOLLOW UP INSTRUCTIONS GIVEN, ALL QUESTIONS ANSWERED. ALL BELONGINGS IN HAND. Addendum: 04/07/23 at 1328 by Bozena Can RN Amended: Links added.
--- NOTE | 2023-04-07 13:45 | NUR ---
NOTIFIED PT THAT SHE HAS APPT IN OUT PT WOUND CARE 04/13 9593. PT STATES THAT SHE WILL BE THERE.
== END 2023-04-07 13:30 | disposition home or self-care (01) | DRG 383 ==
LOC: ER 15:37 → EDBEDREQ 20:43 → EDBEDREQTM 20:43 → EDBEDREQ 20:45 → ED HOLD 20:45 → ORTHO 4S 23:24
PROVIDERS: ADMIT Internal Medicine; ATTEND Internal Medicine
DX: L03.115 Cellulitis of right lower limb (principal); E10.621 Type 1 diabetes mellitus with foot ulcer; L97.519 Non-pressure chronic ulcer of other part of right foot with unspecified severity; E10.65 Type 1 diabetes mellitus with hyperglycemia; F17.200 Nicotine dependence, unspecified, uncomplicated; M79.89 Other specified soft tissue disorders; E78.5 Hyperlipidemia, unspecified; S91.101A Unspecified open wound of right great toe without damage to nail, initial encounter; X58.XXXA Exposure to other specified factors, initial encounter; E03.9 Hypothyroidism, unspecified; Z88.8 Allergy status to other drugs, medicaments and biological substances; Z79.899 Other long term (current) drug therapy; Z89.421 Acquired absence of other right toe(s); Z79.4 Long term (current) use of insulin; Q74.2 Other congenital malformations of lower limb(s), including pelvic girdle; Y93.89 Activity, other specified; Y92.89 Other specified places as the place of occurrence of the external cause; Y99.8 Other external cause status
CPT/HCPCS: 36415; 73630; 73720; 80053; 80202; 82948; 83036; 83605; 84145; 85025; 85651; 86140; 87040; 87070; 87081; 99285; A4649; A6222; A6223; A6258; A6446; A6449; A9575; G0378; J0692; J0696; J1650; J1815; J2543; J3370; J3490; J7030

== ENCOUNTER 2024-01-10 21:39 | Emergency (ER) | payer MEDICAID ==
[~2024-01-10] VITALS: Ht 162.6 cm; Wt 68.0 kg
[2024-01-10 22:23] LABS: BASOPHILS # (AUTO) 0.1 X10'3 (0-0.2); BASOPHILS % (AUTO) 0.5 % (0-1); EOSINOPHILS # (AUTO) 0.1 X10'3 (0-0.9); HEMATOCRIT 37.9 % (35.0-45.0); HEMOGLOBIN 12.7 g/dl (12.0-16.0); LYMPHOCYTES # (AUTO) 1.2 X10'3 (1.1-4.8); LYMPHOCYTES % (AUTO) 10.5 % (21-51); MEAN CORPUSCULAR HEMOGLOBIN 30.3 PG (27.0-31.0); MEAN CORPUSCULAR HGB CONC 33.5 g/dL (33.0-36.5); MEAN CORPUSCULAR VOLUME 90.4 FL (78-98); MEAN PLATELET VOLUME 7.6 FL (7.4-10.4); MONOCYTES # (AUTO) 0.7 X10'3 (0-0.9); MONOCYTES % (AUTO) 6.3 % (2-12); NEUTROPHILS # (AUTO) 9.4 X10'3 (1.8-7.7); NEUTROPHILS % (AUTO) 81.7 % (42-75); PLATELET COUNT 229 X10'3 (140-440); WHITE BLOOD COUNT 11.5 X10'3 (4.5-11.0)
[2024-01-10 22:32] LABS: ALBUMIN 3.4 G/DL (3.4-5.0); ANION GAP 6 (8-16); BLOOD UREA NITROGEN 19 MG/DL (7-18); BUN/CREATININE RATIO 19.4 (10.0-20.0); CALCIUM 8.7 MG/DL (8.5-10.1); CHLORIDE 104 MMOL/L (99-107); CREATININE 0.98 MG/DL (0.40-0.90); GLUCOSE 238 MG/DL (70-104); POTASSIUM 3.9 MMOL/L (3.5-5.1); SODIUM 140 MMOL/L (135-145); TOTAL CARBON DIOXIDE 30.3 MMOL/L (24-32); eCRCL 55 ML/MIN; eGFR 58 ML/MIN
[2024-01-10] MEDS: normal saline 1000ML IV soln IVB ONE (23:22)
[2024-01-11 02:22] LABS: BILIRUBIN,URINE NEGATIVE (Neg); CLARITY,URINE SLIGHTLY CLOUDY (Clear); COLOR,URINE YELLOW (Yellow); GLUCOSE, URINE 500 mg/dl (Neg); KETONES,URINE NEGATIVE (Neg); LEUKOCYTE ESTERASE ,URINE NEGATIVE (Neg); NITRITES, URINE NEGATIVE (Neg); OCCULT BLOOD,URINE SMALL (Neg); PROTEIN,URINE 30 mg/dl (Neg); UROBILINOGEN,URINE 0.2 E.U/dL (0.2-1.0)
[2024-01-11 02:30] LABS: UA COLLECTION TYPE CLN CATCH MIDSTREAM
[2024-01-11 02:37] LABS: MUCUS STRANDS MANY /LPF (Neg); SQUAMOUS EPITHELIAL CELL,UR MODERATE /LPF (FEW)
[2024-01-11 02:38] LABS: RBC,URINE 0-2 /HPF (0-2); TRANSITIONAL EPI CELLS,URINE FEW /HPF; WBC,URINE 0-4 /HPF (0-4)
[2024-01-11 02:41] LABS: BACTERIA,URINE FEW /HPF (Neg)
[2024-01-11] MEDS ORDERED: ondansetron/PF 4mg/2ml inj IV ONE (03:10)
[2024-01-11 03:32] VITALS: BP 111/72; PULSE 77; RESP 18; TEMP 98.4; O2SAT 98
== END 2024-01-11 03:33 | disposition home or self-care (01) ==
LOC: ER 21:40
DX: E11.649 Type 2 diabetes mellitus with hypoglycemia without coma (principal); E03.9 Hypothyroidism, unspecified
CPT/HCPCS: 36415; 80048; 81001; 82948; 83605; 85025; 87040; 96360; 96361; 99285; J7030

== ENCOUNTER 2025-07-02 04:10 | Emergency (ER) | payer MEDICAID ==
[~2025-07-02] VITALS: Ht 162.6 cm; Wt 54.7 kg
[~2025-07-02 04:10] MED LIST changes: -ATOR20TA PO; -CLIN-97 PO; -INSU100V9 SQ; -LISI2.5T14 PO; +UNABLE TO OBTAIN
--- NOTE | 2025-07-02 04:18 | Physician Documentation ---
History of Present Illness ~ Stated Complaint: HYPOGLYCIMIA Time Seen by MD: 04:12 Primary Medical Doctor: Boone Ruelas MD HPI This is a 59-year-old female with a history of type 1 diabetes presents for evaluation of episode of unresponsiveness. She was found by family unrespo nsive, GCS of three. Family states glucose read low. Family administer glucagon. EMS noted her glucose to be in the 70s with a improving mental status. Additional glucose and Zofran were administered. By the time patient is in the ED, GCS is 15, she is alert, wake, oriented x4, and reports that she possibly took extra insulin last night. She does state that she also eight. S he has not had episodes of hypoglycemia in the past according to patient, however the family states that this happened before. She denies any recent fever, chills, chest pain, difficulty breathing, nausea, vomiting, diarrhea, abdominal pain, dysuria hematuria. Denies any concerns for tobacco, alcohol or illicit substances use Medication Reconciliation Allergies: Coded Allergies: No Known Allergies (Unverified , 07/02/25) Miscellaneous Medications Unable to Obtain Medications (Unable to Obtain Medications), (Reported) Past Medical History Past Medical History: Diabetes, Hypothyroidism Past Surgical History: noncontributory Alcohol Use: None Drug Use: none Lives In: Home Review of Systems ROS 10 point review of systems was performed and unless noted above in HPI is negative for acute process/complaint. Physical Exam Physical Exam GENERAL: Awake, alert, oriented, GCS 15, no apparent distress, non-toxic appearing, answers questions, follows commands appropriately. Examined immedi ately upon arrival in the EMS gurney. HEENT: Atraumatic, normocephalic, pupils equal, extraocular muscles intact, sclerae anicteric, mucus membranes moist, oropharynx is clear, no stridor. NECK: supple, full active range of motion, trachea midline, no thyromegaly, no lymphadenopathy, no JVD. CARDIOVASCULAR: regular rate/rhythm, no murmurs/gallops/rubs, Pulses are 2+ in all extremities and symmetric. Capillary refill less than 2 seconds. PULMONARY: Nonlabored, good air movement ,no respiratory distress, speaking in full sentences, clear to auscultation bilaterally, no wheezing, no ronchi, no rales, no accessory muscle use. GASTROINTESTINAL: Soft, non-tender, non-distended, normal active bowel sounds, no organomegaly, no pulsatile masses, no CVA tenderness. NEUROLOGIC: Lucid with normal mental status. Normal facial symmetry. Moves all extremities symmetrically and with purpose. No truncal ataxia. Speech is fluid without evidence of dysarthria or aphasia, no focal deficits appreciated. MUSCULOSKELETAL: There is full range of motion of all extremities. There is no joint pain or joint swelling or joint erythema. There is no muscle pain or tenderness or swelling. EXTREMITIES: warm, well-perfused, no cyanosis, no clubbing, no edema, no acute deformities. Skin: warm, dry, no rashes or lesions, no jaundice, no petechiae orpurpura. No ecchymosis. PSYCHIATRIC: Normal affect, normal insight, normal concentration. Focused exam: [] Progress Results/Orders Results/Orders Orders - DAVI FRANK DO ESR (07/02/25 04:12) C-Reactive Protein (07/02/25 04:12) Urinalysis, Cult If Indicated (07/02/25 04:12) Chest,Single View (07/02/25 04:12) MG (07/02/25 04:12) Accucheck (07/02/25 04:12) Accucheck (07/02/25 05:12) Accucheck (07/02/25 06:12) Accucheck (07/02/25 07:12) Hs Troponin I W Calculations (07/02/25 04:12) CMP (07/02/25 04:12) Completed Orders - DAVI FRANK DO Cbc/Diff (07/02/25 04:12) Prochlorperazine Inj (Compazine Inj) (07/02/25 04:15) Vital Signs 07/02/25 07/02/25 04:16 04:26 Temp 96.8 Pulse 78 Resp 14 B/P (MAP) 163/95 Pulse Ox 100 O2 Flow Rate 0 Laboratory Tests Test 07/02/25 04:25 07/02/25 04:37 Glucometer 157 H White Blood Count 9.5 Red Blood Count 3.76 L Hemoglobin 11.4 L Hematocrit 34.0 L Mean Corpuscular Volume 90.4 Mean Corpuscular Hemoglobin 30.4 Mean Corpuscular Hemoglobin Concent 33.6 Red Cell Distribution Width 13.8 Platelet Count 223 Mean Platelet Volume 7.8 Neutrophils (%) (Auto) 71.7 Lymphocytes (%) (Auto) 17.7 L Monocytes (%) (Auto) 8.1 Eosinophils (%) (Auto) 1.9 Basophils (%) (Auto) 0.6 Neutrophils # (Auto) 6.8 Lymphocytes # (Auto) 1.7 Monocytes # (Auto) 0.8 Eosinophils # (Auto) 0.2 Basophils # (Auto) 0.1 CBC Comment Chemistry Comments Medical Decision Making Findings Facility Status: ED Holds, E process The plan was discussed with the patient, who demonstrates clear understanding of the plan and is in agreement with the plan unless otherwise noted in the chart. All questions have been answered, all concerns were addressed unless otherwise documented. I was available throughout their ED stay for frequent reassessment and questions. Differential Diagnoses (considered and possible or likely): [Most likely represents hypoglycemia, either secondary to administration of too much medicine in the/accidental overdose, or secondary to UTI, dehydration, pneumonia, occult bacteremia. Less likely her transient alteration of awareness that improved with a glucose was a result of acute intracranial process, alcohol intoxication, drug toxidrome.] ??Differential Diagnoses (considered and unlikely, not requiring evaluation currently): [No evidence of lateralizing sinuses suspect a stroke] MDM Data Please see [facility] for the following: Independent Historians and external Records Review. Historian: [Patient] Independent Historians: ?[EMS, record review] Medication Management: [Reviewed medication list] Social History and determinants: [Reviewed] Please see the body of the note for the following: Any independent interpretations of ECG, imaging studies. All vitals signs/haemodynamics, ordered tests were independently reviewed and interpreted by myself. Nursing triage complaint and vitals reviewed, additional nursing notes were reviewed as available and I agree unless otherwise noted or documented in contradiction in the chart Vital Signs: Independently reviewed Labs: Independently interpreted Imaging: Independently interpreted Old Medical Records: Independently reviewed, see [facility] for relevant summary and information Pulse Oximetry: [97%] interpreted as [normal on room air] by me [Watermaster: [Regular Rate, Regular rhythm, no ectopy, NSR] reviewed and interpreted by me] Additionally notably showing: [] Tests considered but not ordered include: [] Social Determinants of Health Impact: [facility] [place] to healthcare due to below par ratio of patient to medical providers. [] Comorbid Conditions Impacting Present Evaluation and Care/Treatment: [] Management Discussions with other Healthcare Providers: [] Treatment and Disposition Medication Management (Given or considered): []. See EMR for details Consideration for Hospitalization/Escalation/Deescalation of Care: Admission for observation has been considered, [however the patient is able to tolerate p.o., their symptoms are controlled, they are able to rely on oral medications, and their chief complaint/diagnosis can be managed on outpatient basis.] ?ED Course:?[Date: Jul 02, 2025 Time: 04:58 patient informed the nurse that she wants to go. She feels that her blood sugar is fine. She no longer wants any evaluation. Refused chest x-ray. Did not provide urine. The patient clearly has a medical decision-making capacity. We can not hold her here against her will. The patient will leave against medical advice. ] ?Shared decision making:?[] Code status:?FULL Please see the full Electronic Medical Record for full details of nursing documentation, medications list, other records of complete past medical history and conditions, vital signs, laboratory studies, and any radiologic study interpretations by radiologists. Portions of this note were completed using [employer] dictation software and as a result there may exist minor errors in spelling. I have reviewed elements of past family and social history and agree as included in note. Departure Disposition: 07 LEFT AGAINST MEDICAL ADVICE Impression: Primary Impression: Hypoglycemia Additional Impression: Transient alteration of awareness Condition: Improved Discharge Instructions: Hypoglycemia, [id number] Referrals: NO PRIMARY CARE PROVIDER (PCP) Signature Scribe Signature: No scribe Attestation: This note accurately reflects clinical decisions, work performed by myself, Davi Frank, DAVI COLON DO Jul 02, 2025 04:18
[2025-07-02 04:49] LABS: MEAN PLATELET VOLUME 7.8 FL (7.4-10.4); RED CELL DISTRIBUTION WIDTH 13.8 % (11.5-14.5)
[2025-07-02 05:10] LABS: CREATININE 1.06 MG/DL (0.40-0.90); TOTAL CARBON DIOXIDE 27.8 MMOL/L (24-32); eCRCL 50 ML/MIN; eGFR 53 ML/MIN
[2025-07-02 05:19] LABS: LEUKOCYTE ESTERASE ,URINE TRACE (Neg); NITRITES, URINE NEGATIVE (Neg); OCCULT BLOOD,URINE NEGATIVE (Neg)
[2025-07-02 05:26] LABS: UA COLLECTION TYPE CLN CATCH MIDSTREAM
[2025-07-02 05:34] LABS: SQUAMOUS EPITHELIAL CELL,UR FEW /LPF (FEW)
[2025-07-02 05:35] VITALS: BP 114/83; PULSE 92; RESP 16; O2SAT 98
[2025-07-02 05:49] VITALS: TEMP 96.8
== END 2025-07-02 05:50 | disposition home or self-care (01) ==
LOC: ER 04:11
DX: E10.649 Type 1 diabetes mellitus with hypoglycemia without coma (principal); E03.9 Hypothyroidism, unspecified; Z79.4 Long term (current) use of insulin
CPT/HCPCS: 36415; 80053; 81001; 82948; 83735; 84484; 85025; 85651; 86140; 87088; 99283